=== PATIENT | male | born 1995 | race Two or more races ===

== ENCOUNTER 2020-11-18 22:40 | Emergency (ER) | payer OTHER ==
[~2020-11-18] VITALS: Ht 167.6 cm; Wt 63.6 kg
--- NOTE | 2020-11-18 23:28 | PHYS DOC ---
Past Medical History Past Surgical History: No Surgical History General Adult EDM: Chief Complaint: ABDOMINAL PAIN HPI: HPI: Patient is a 25 year old male presents with a chief complaint of right flank rand right lower quadrant abdominal pain. Patient's pain started 2 hours ago. Patient has associated nausea and vomiting. Pain is located right lower quadrant with radiation to right flank. Patient has vomited x 1. Review of Systems: Review of Systems: Review of systems: Constitutional symptoms- No fever, no chills. Eyes- No Discharge, No Visual Loss Respiratory symptoms- No shortness of breath, No wheezing, No Dyspnea on Exertion Cardiovascular Systems; No chest pain, No Palpitations, No syncope Gastrointestinal symptoms: Positive abdominal pain, Positive nausea, Positive vomiting Genitourinary symptoms: No dysuria. Positive flank pain Musculoskeletal symptoms: No back pain No extremity pain. NEUROLOGICAL Symptoms: No headache, no generalized weakness; No focal Weakness Skin: No rash. Heart Score: C/O Chest Pain: N/A Risk Factors: Risk Factors: DM, Current or recent (<one month) smoker, HTN, HLP, family history of CAD, obesity. Risk Scores: Score 0 - 3: 2.5% MACE over next 6 weeks - Discharge Home Score 4 - 6: 20.3% MACE over next 6 weeks - Admit for Clinical Observation Score 7 - 10: 72.7% MACE over next 6 weeks - Early Invasive Strategies Physical Exam: PE: Constitutional: Well developed, well nourished, no acute distress, non-toxic appearance. [] HENT: Normocephalic, atraumatic, bilateral external ears normal, oropharynx moist, no oral exudates, nose normal. [] Eyes: PERRLA, EOMI, conjunctiva normal, no discharge. [] Neck: Normal range of motion, no tenderness, supple, no stridor. [] Cardiovascular:Heart rate regular rhythm, no murmur [] Lungs & Thorax: Bilateral breath sounds clear to auscultation [] Abdomen: Bowel sounds normal, soft, no tenderness, no masses, no pulsatile masses. [] Skin: Warm, dry, no erythema, no rash. [] Back: No tenderness, no CVA tenderness. [] Extremities: No tenderness, no cyanosis, no clubbing, ROM intact, no edema. [] Neurologic: Alert and oriented X 3, normal motor function, normal sensory function, no focal deficits noted. [] Psychologic: Affect normal, judgement normal, mood normal. [] Current Patient Data: Vital Signs: Vital Signs Date Time Temp Pulse Resp B/P (MAP) Pulse Ox O2 Delivery O2 Flow Rate FiO2 11/18/20 22:52 98.6 84 103/67 (79) 96 Room Air 98.6 EKG: EKG: [] Radiology/Procedures: Radiology/Procedures: [] Impression: EXAMINATION: CT abdomen and pelvis without IV contrast. INDICATION:25 years, Male, right flank pain. TECHNIQUE: Axial CT images of the abdomen and pelvis were obtained. Coronal and sagittal reformatted performed. COMPARISON: None. Exposure: One or more of the following individualized dose reduction techniques were utilized for this examination: 1. Automated exposure control 2. Adjustment of the mA and/or kV according to patient size 3. Use of iterative reconstruction technique. FINDINGS: KIDNEYS AND RENAL COLLECTING SYSTEMS RIGHT KIDNEY AND URETER: No evidence of right renal or ureteric obstructing calculi. There are symmetric subtle findings of medullary calcinosis. No hydronephrosis. No focal renal lesions, within the limits of this noncontrast examination. LEFT KIDNEY AND URETER: No evidence of left renal or ureteric obstructing calculi. There are symmetric subtle findings of medullary calcinosis No hydronephrosis. No focal renal lesions, within the limits of this noncontrast examination. URINARY BLADDER: Bladder is unremarkable OTHER: Visualized lung bases are clear. The liver, gallbladder, spleen, adrenals, and pancreas are unremarkable. Stomach is unremarkable. No evidence of bowel obstruction or focal wall thickening. Appendix is slightly prominent with no periappendiceal inflammatory changes to suggest acute appendicitis. No free intra-abdominal air or fluid. There is a few prominent nodes in the right lower quadrant which are pathologically enlarged. The vasculature appears normal course and caliber. Abdominal wall is normal. No acute osseous process. IMPRESSION: 1.No evidence of acute process in the abdomen or pelvis. Appendix is within normal limits. There are a few prominent lymph nodes within the right lower quadrant which is a nonspecific finding but can be seen in the setting of mesenteric adenitis. 2. 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 (See chart for details) [] Patient was evaluated for chief complaint. Work-up consisted of laboratory analysis and radiologic imaging. Results reviewed and discussed with patient. Vanessa Disclaimer: Vanessa Disclaimer: This electronic medical record was generated, in whole or in part, using a voice recognition dictation system. Departure Departure Impression: Primary Impression: Abdominal pain Disposition: HOME / SELF CARE / HOMELESS Condition: STABLE Patient Instructions: Abdominal Pain Scripts Hydrocodone/Acetaminophen (Hydrocodone-Acetamin 5-325 mg) 1 Each Tablet 1 EACH PO Q4-6HRS, #20 TAB Prov: JOVANA CHIN DO 11/19/20 JOVANA CHIN DO Nov 18, 2020 23:28
[2020-11-18 23:42] LABS: BASO # 0.1 x10^3/uL (0.0-0.2); BASO % 1 % (0-3); EOS # 0.1 x10^3/uL (0.0-0.7); EOS % 1 % (0-3); HEMATOCRIT 46.1 % (39.0-53.0); HEMOGLOBIN 15.9 g/dL (13.0-17.5); LYMPH # 1.8 x10^3/uL (1.0-4.8); LYMPH % 25 % (24-48); MEAN CORPUSCULAR HEMOGLOBIN 29 pg (25-35); MEAN CORPUSCULAR HGB CONC 35 g/dL (31-37); MEAN CORPUSCULAR VOLUME 85 fL (79-100); MONO # 0.4 x10^3/uL (0.0-1.1); MONO % 6 % (0-9); NEUT # 4.9 x10^3/uL (1.8-7.7); NEUT % 68 % (31-73); PLATELET COUNT 208 x10^3/uL (140-400); RED BLOOD COUNT 5.42 x10^6/uL (4.30-5.70); RED CELL DISTRIBUTION WIDTH 13.5 % (11.5-14.5); WHITE BLOOD COUNT 7.3 x10^3/uL (4.0-11.0)
[2020-11-18] MEDS ORDERED: KETOROLAC 30 MG/ML VIAL. IVP ONE (23:45)
[2020-11-18] MEDS ORDERED: ONDANSETRON PF 4 MG/2 ML VIAL. IVP ONE (23:45)
[2020-11-18 23:48] LABS: CALCIUM 8.8 mg/dL (8.5-10.1); CREATININE 0.9 mg/dL (0.7-1.3); POTASSIUM 3.6 mmol/L (3.5-5.1)
[2020-11-18 23:54] LABS: ALBUMIN 4.4 g/dL (3.4-5.0); ALBUMIN/GLOBULIN RATIO 1.5 (1.0-1.7); TOTAL BILIRUBIN 0.3 mg/dL (0.2-1.0); TOTAL PROTEIN 7.4 g/dL (6.4-8.2)
[2020-11-19] MEDS ORDERED: IV NORMAL SALINE 1000ML BAG 1,000 ML IV ONE (01:15)
--- NOTE | 2020-11-19 02:05 | RAD ---
EXAMINATION: CT abdomen and pelvis without IV contrast. INDICATION:25 years, Male, right flank pain. TECHNIQUE: Axial CT images of the abdomen and pelvis were obtained. Coronal and sagittal reformatted performed. COMPARISON: None. Exposure: One or more of the following individualized dose reduction techniques were utilized for thi s examination: 1. Automated exposure control 2. Adjustment of the mA and/or kV according to patient size 3. Use of iterative reconstruction technique. FINDINGS: KIDNEYS AND RENAL COLLECTING SYSTEMS RIGHT KIDNEY AND URETER: No evidence of right renal or ureteric obstructing calculi. There are symmetric subtle findings of me dullary calcinosis. No hydronephrosis. No focal renal lesions, within the limits of this noncontrast examination. LEFT KIDNEY AND URETER: No evidence of left renal or ureteric obstructing calculi. There are symmetric subtle findings of med ullary calcinosis No hydronephrosis. No focal renal lesions, within the limits of this noncontrast ex amination. URINARY BLADDER: Bladder is unremarkable OTHER: Visualized lung bases are clear. The liver, gallbladder, spleen, adrenals, and pancreas are unremarka ble. Stomach is unremarkable. No evidence of bowel obstruction or focal wall thickening. Appendix is slightly prominent with no periappendiceal inflammatory changes to suggest acute appendicitis. No fr ee intra-abdominal air or fluid. There is a few prominent nodes in the right lower quadrant which are pathologically enlarged. The vasculature appears normal course and caliber. Abdominal wall is normal . No acute osseous process. IMPRESSION: 1.No evidence of acute process in the abdomen or pelvis. Appendix is within normal limits. There are a few prominent lymph nodes within the right lower quadrant which is a nonspecific finding but can be seen in the setting of mesenteric adenitis. 2. 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
[2020-11-19 02:29] LABS: BILIRUBIN,URINE NEGATIVE (NEG); CLARITY,URINE CLEAR; COLOR,URINE YELLOW; NITRITE,URINE NEGATIVE (NEG); PROTEIN,URINE NEGATIVE (NEG-TRACE); UROBILINOGEN,URINE 0.2 mg/dL (0.2 mg/dL)
[2020-11-19 02:37] LABS: AMORPHOUS SEDIMENT,UR PRESENT /HPF; BACTERIA,URINE 0 /HPF (0-FEW); RBC,URINE RARE /HPF (0-2); WBC,URINE RARE /HPF (0-4)
[2020-11-19] MEDS ORDERED: HYDR-2759 PO (02:45)
[2020-11-19 02:48] VITALS: BP 130/57
== END 2020-11-19 03:10 | disposition home or self-care (01) ==
LOC: ER 22:40
DX: R10.31 Right lower quadrant pain (principal); R11.2 Nausea with vomiting, unspecified
CPT/HCPCS: 36415; 74176; 80053; 81001; 83690; 85025; 96361; 96374; 96375; 99285; J1885; J2405; J7030